=== PATIENT | male | born 1995 | race Caucasian/White ===

== ENCOUNTER 2017-08-24 15:08 | Emergency (ER) | payer OTHER ==
[~2017-08-24] VITALS: Ht 182.9 cm; Wt 95.3 kg
[~2017-08-24 15:08] MED LIST: DEPAKOTE ER500 MG; LORAZEPAM INT2 MG/ML; RISPERDAL1 MG
[2017-08-24] MEDS ORDERED: VISTARIL50 MG PO (17:57)
== END 2017-08-24 18:06 | disposition home or self-care (01) ==
LOC: ER 15:08
DX: R06.02 Shortness of breath (principal); F41.0 Panic disorder [episodic paroxysmal anxiety]